=== PATIENT | female | born 1950 ===

== ENCOUNTER 2019-11-08 12:00 | Emergency (ER) | payer OTHER, BC ==
[~2019-11-08] VITALS: Ht 154.9 cm; Wt 63.5 kg
[2019-11-08] MEDS ORDERED: COZAAR50 MG (12:52)
[2019-11-08] MEDS ORDERED: SIMVASTATIN5 MG (12:52)
[2019-11-08] MEDS ORDERED: MICROZIDE12.5 MG (12:53)
[2019-11-08] MEDS ORDERED: EVISTA60 MG (12:53)
== END 2019-11-08 16:07 | disposition home or self-care (01) ==
LOC: ER 12:00
DX: H66.92 Otitis media, unspecified, left ear (principal)